=== PATIENT | male | born 1965 | race African-American/Black ===

== ENCOUNTER 2021-08-11 19:53 | Emergency (ER) | payer MEDICARE, MEDICAID ==
[~2021-08-11] VITALS: Ht 180.3 cm; Wt 113.0 kg
[~2021-08-11 19:53] MED LIST: METHADONE
[2021-08-11 22:37] LABS: BASOPHILS % 0.4 % (0.0-2.0); EOSINOPHILS % 3.8 % (0.0-5.0); HEMATOCRIT. 36.1 % (42.0-52.0); HEMOGLOBIN. 11.8 g/dL (14.0-18.0); LYMPHOCYTES % 25.5 % (20.0-50.0); MEAN CORPUSCULAR VOLUME 91.6 fL (80.0-94.0); MEAN PLATELET VOLUME 8.7 fl (7.4-10.4); MONOCYTES % 11.9 % (2.0-8.0); NEUTROPHILS % 58.4 % (40.0-76.0); PLATELET 364 x1000/uL (130-400); RED BLOOD CELL COUNT 3.94 mill/uL (4.7-6.1); RED CELL DISTRIBUTION WIDTH 12.9 % (11.6-14.6)
[2021-08-11 22:43] LABS: CHLORIDE 103 mEq/L (98-107)
[2021-08-11] MEDS ORDERED: IOHEXOL-300 100 ML BOTTLE ONE (23:30)
[2021-08-12] MEDS ORDERED: CEFTRIAXONE 1 G PREMIX 50 ML IV ONE (01:00)
[2021-08-12] MEDS ORDERED: LIDOCAINE HCL 1% 10 MG/ML 10ML VIAL IJ SCH (01:00)
[2021-08-12] MEDS ORDERED: FENTANYL CITRATE/PF 50MCG/ML 2ML VIAL IV ONE (01:00)
[2021-08-12] MEDS ORDERED: LIDOCAINE HCL 1% 20ML VIAL (Pyxis) INJ INFIL ONE (01:00)
[2021-08-12 01:07] VITALS: BP 134/62
[2021-08-12] MEDS ORDERED: HYDR-4001 MT (02:32)
[2021-08-12] MEDS ORDERED: SULF-292 MT (02:32)
[2021-08-12] MEDS ORDERED: SULFAMETHOXAZOLE/TRIMETHOPRIM 800/160MG TABLET PO ONE ×5 (02:45)
[2021-08-12] MEDS ORDERED: SULFAMETHOXAZOLE/TRIMETHOPRIM 800/160MG TABLET PO SCH ×2 (03:15→08:00)
== END 2021-08-12 03:44 | disposition home or self-care (01) ==
LOC: ER 19:53
DX: L02.415 Cutaneous abscess of right lower limb (principal); L03.115 Cellulitis of right lower limb; E11.9 Type 2 diabetes mellitus without complications; I10 Essential (primary) hypertension; J44.9 Chronic obstructive pulmonary disease, unspecified
CPT/HCPCS: 36415; 72193; 80053; 82962; 83605; 85025; 87040; 96365; 96366; 96375; 99285; J0696; J3010; J3490; Q9967

== ENCOUNTER 2021-08-16 15:08 | Emergency (ER) | payer MEDICARE, MEDICAID ==
[~2021-08-16] VITALS: Ht 165.1 cm; Wt 80.0 kg
[~2021-08-16 15:08] MED LIST changes: +HYDR-4001 MT; +SULF-292 MT
[2021-08-16 15:09] VITALS: BP 125/71
== END 2021-08-16 18:26 | disposition left against medical advice (07) ==
LOC: ER 15:08
DX: Z53.21 Procedure and treatment not carried out due to patient leaving prior to being seen by health care provider (principal)

== ENCOUNTER 2021-09-06 08:49 | Emergency (ER) | payer MEDICARE, MEDICAID ==
[~2021-09-06] VITALS: Ht 180.3 cm; Wt 111.0 kg
[2021-09-06 08:53] VITALS: BP 169/57
[2021-09-06] MEDS ORDERED: CLINDAMYCIN HCL 150MG CAPSULE PO ONE (09:30)
[2021-09-06] MEDS ORDERED: TOPUD PO (11:28)
[2021-09-06] MEDS ORDERED: CLIN300C12 MT (11:28)
[2021-09-06] MEDS ORDERED: IBUP-2028 MT (11:28)
== END 2021-09-06 11:38 | disposition home or self-care (01) ==
LOC: ER 08:49
DX: L02.214 Cutaneous abscess of groin (principal); J44.1 Chronic obstructive pulmonary disease with (acute) exacerbation; E11.9 Type 2 diabetes mellitus without complications; I10 Essential (primary) hypertension
CPT/HCPCS: 10060; 99283

== ENCOUNTER 2021-09-08 07:59 | Emergency (ER) | payer MEDICARE, MEDICAID ==
[~2021-09-08] VITALS: Ht 180.3 cm; Wt 112.0 kg
[~2021-09-08 07:59] MED LIST changes: +CLIN300C12 MT; +IBUP-2028 MT; +TOPUD PO
[2021-09-08 10:15] VITALS: BP 132/70
== END 2021-09-08 10:20 | disposition home or self-care (01) ==
LOC: ER 07:59
DX: Z48.02 Encounter for removal of sutures (principal); J44.9 Chronic obstructive pulmonary disease, unspecified; I10 Essential (primary) hypertension; Z87.891 Personal history of nicotine dependence; Z79.899 Other long term (current) drug therapy
CPT/HCPCS: 99281

== ENCOUNTER 2021-09-18 09:44 | Emergency (ER) | payer MEDICARE, MEDICAID ==
[~2021-09-18] VITALS: Ht 180.3 cm; Wt 111.0 kg
[2021-09-18 09:56] VITALS: BP 116/86
== END 2021-09-18 10:46 | disposition home or self-care (01) ==
LOC: ER 09:44
DX: Z48.00 Encounter for change or removal of nonsurgical wound dressing (principal); L02.31 Cutaneous abscess of buttock
CPT/HCPCS: 99281

== ENCOUNTER 2021-12-14 10:06 | Emergency (ER) | payer MEDICARE, MEDICAID ==
[~2021-12-14] VITALS: Ht 175.3 cm; Wt 90.0 kg
[2021-12-14] MEDS ORDERED: HALOPERIDOL LACTATE 5MG/ML VIAL IM ONE (11:45)
[2021-12-14 12:02] LABS: BASOPHILS % 0.5 % (0.0-2.0); EOSINOPHILS % 2.1 % (0.0-5.0); HEMATOCRIT. 41.7 % (42.0-52.0); HEMOGLOBIN. 13.7 g/dL (14.0-18.0); LYMPHOCYTES % 37.5 % (20.0-50.0); MEAN CORPUSCULAR VOLUME 91.4 fL (80.0-94.0); MEAN PLATELET VOLUME 9.4 fl (7.4-10.4); NEUTROPHILS % 48.9 % (40.0-76.0); PLATELET 272 x1000/uL (130-400); RED BLOOD CELL COUNT 4.56 mill/uL (4.7-6.1); RED CELL DISTRIBUTION WIDTH 12.5 % (11.6-14.6)
[2021-12-14 12:05] LABS: CHLORIDE 108 mEq/L (98-107)
[2021-12-14 12:10] LABS: ETHANOL BLOOD < 10 mg/dL
[2021-12-14 17:00] VITALS: BP 129/68
== END 2021-12-15 18:37 | disposition left against medical advice (07) ==
LOC: ER 10:27
DX: R41.82 Altered mental status, unspecified (principal); J44.9 Chronic obstructive pulmonary disease, unspecified; E11.9 Type 2 diabetes mellitus without complications; I10 Essential (primary) hypertension; Z79.899 Other long term (current) drug therapy
CPT/HCPCS: 36415; 70450; 80053; 80320; 82962; 85025; 93005; 96372; 99285; J1630; G0480

== ENCOUNTER 2021-12-18 12:16 | Emergency (ER) | payer MEDICARE, MEDICAID ==
[~2021-12-18] VITALS: Ht 167.6 cm; Wt 100.0 kg
[2021-12-18 12:29] VITALS: BP 142/79
== END 2021-12-18 15:26 | disposition left against medical advice (07) ==
LOC: ER 12:16
DX: Z53.21 Procedure and treatment not carried out due to patient leaving prior to being seen by health care provider (principal); M79.641 Pain in right hand; E11.9 Type 2 diabetes mellitus without complications; I10 Essential (primary) hypertension
CPT/HCPCS: 82962